=== PATIENT | female | born 1935 | race African-American/Black ===

== ENCOUNTER 2017-04-09 14:30 | Outpatient (RCR) | payer OTHER ==
[~2017-04-09 14:30] MED LIST: DIOVAN HCT 3201 EACH PO; FISH OIL300 MG PO; METOPROLOL TART50 MG PO; NIFEDIAC CC60 MG PO; PLAVIX75 MG ORAL; PRAVASTATIN SOD80 MG PO; PROBIOTIC1 EACH PO; TRAMADOL HCL50 MG ORAL; VITAMIN D-32000 UNI1 PO; ZETIA10 MG PO
== END 2017-04-25 | disposition home or self-care (01) ==
LOC: PTY 14:30
DX: S32.9XXD Fracture of unspecified parts of lumbosacral spine and pelvis, subsequent encounter for fracture with routine healing (principal)
CPT/HCPCS: 97110; 97140; 97162; G0283

== ENCOUNTER 2017-04-30 07:52 | Outpatient (RCR) | payer OTHER | END 2017-05-26 | disposition home or self-care (01) | LOC: PTY 07:52 | DX: S32.9XXD Fracture of unspecified parts of lumbosacral spine and pelvis, subsequent encounter for fracture with routine healing (principal); X58.XXXD Exposure to other specified factors, subsequent encounter | CPT/HCPCS: 97110; 97140; G0283 ==

== ENCOUNTER 2018-03-31 15:30 | Outpatient (RCR) | payer OTHER | END 2018-04-25 | disposition home or self-care (01) | LOC: PTY 15:30 | DX: R29.6 Repeated falls (principal); R26.81 Unsteadiness on feet ==

== ENCOUNTER 2018-04-28 15:00 | Outpatient (RCR) | payer OTHER | END 2018-05-26 | disposition home or self-care (01) | LOC: PTY 15:00 | DX: R29.6 Repeated falls (principal); R26.81 Unsteadiness on feet ==

== ENCOUNTER 2018-05-27 15:05 | Outpatient (RCR) | payer OTHER | END 2018-06-26 | disposition home or self-care (01) | LOC: PTY 15:05 | DX: R29.6 Repeated falls (principal); R26.81 Unsteadiness on feet ==

== ENCOUNTER 2018-06-30 15:00 | Outpatient (RCR) | payer OTHER | END 2018-07-26 | disposition home or self-care (01) | LOC: PTY 15:00 | DX: R29.6 Repeated falls (principal); R26.81 Unsteadiness on feet; Z88.8 Allergy status to other drugs, medicaments and biological substances ==